=== PATIENT | male | born 1975 | race African-American/Black ===

== ENCOUNTER 2020-08-08 14:12 | Emergency (ER) | payer SELFPAY ==
[2020-08-08] MEDS ORDERED: Ibuprofen 800 MG TAB ONE (15:44)
[2020-08-08] MEDS ORDERED: Dexamethasone 4 MG TAB ONE (15:44)
--- NOTE | 2020-08-08 17:41 | RAD ---
PORTABLE CHEST: Date: 08-08-2020 FINDINGS: An AP portable film at 1647 shows a normal sized heart and clear lungs. No infiltrate or effusion was seen. No vascular congestion or edema was present. IMPRESSION: No acute thoracic finding. POS: HOME
[2020-08-09 18:17] LABS: SARS-CoV-2 PCR by NAA DETECTED (NotDetected)
== END 2020-08-08 16:25 | disposition home or self-care (01) ==
LOC: BURERS 14:12
DX: U07.1 COVID-19 (principal); F17.210 Nicotine dependence, cigarettes, uncomplicated
CPT/HCPCS: 36416; 71045; 87635; 87804; 94799; J8540; U0003; U0005